=== PATIENT | male | born 1985 | race Caucasian/White ===

== ENCOUNTER 2019-07-05 04:20 | Emergency (ER) | payer BC, SELFPAY ==
--- NOTE | 2019-07-05 04:22 | CT_ITS ---
HISTORY: RIGHT FLANK PAIN, HX KS IN PAST TECHNIQUE: Helically acquired images were obtained of the abdomen and pelvis without oral or IV contrast. A radiation dose optimization technique was used for this scan. COMPARISON: None FINDINGS: # of images incl. paperwork: 485 LUNG BASES: clear. CT abdomen: Bones are unremarkable. The gallbladder remains. Liver, spleen, pancreas, and adrenal glands are normal. Right perirenal edema, right hydronephrosis and right nonobstructing nephrolith. Right hydroureter and right periureteric edema. Within the bladder aspect of the right ureterovesicular junction there is a 2 mm obstructing stone. The left kidney contains a nonobstructing stone. No left hydronephrosis or hydroureter. The aorta is normal. There is no intra-or extrahepatic biliary ductal dilatation. CT pelvis: No ascites is present. The prostate gland is not enlarged. The appendix is normal. Series 2 image 105. The bladder is normal. Bowel gas pattern is normal. CT/Abdomen/Pelvis without Cont IMPRESSION: 2 mm bladder aspect of right UVJ stone with right hydronephrosis and right hydroureter Individualized dose optimization techniques were used for this CT. at 0544 Reported and signed by: Miki Garcia MD Electronically Signed: Miki Garcia MD at 5:43 EDT Tel , Service support ,
--- NOTE | 2019-07-05 04:22 | ED.VISSUMM ---
- ER Visit Summary Date of Service: 07/05/19 Chief Complaint: Right flank pain History of Present Illness: The patient is a 34 M who had a sudden onset of right flank pain about 2 hours ago. He states he has pain in his right flank that radiated to his groin. At that point the pain was pretty severe but it is improved. He took nothing for this at home. He denies any hematuria. He states he had a kidney stone many years ago but it felt nothing like this. Denies any injuries. No fevers. Physical Examination: Vital signs reviewed. HEENT exam unremarkable. Heart is regular rate and rhythm without murmurs. Lungs are clear to auscultation. Abdomen is soft and nontender. Extremities reveal no edema. Skin exam normal. Neurologic exam normal. Test Results: CAT scan reveals a 2 mm kidney stone at the ureterovesicular junction. Urinalysis has 100 leukocytes, 150 blood, 10-25 white and red blood cells Emergency Department Course and Treatment: Patient was given saline and Toradol. He feels much better. Etiology of his symptoms are likely with his kidney stone. He does have white blood cells in his urine. However, he has no bacteria seen and has no UTI-like symptoms. I will await a urine culture before starting any antibiotics. I will send her home with [place] for pain control. He will follow-up with his PCP. Treatment Plan: [] Disposition: Discharge Impression: Right ureterolithiasis This note was generated with [employer] software. It may contain incorrect words, spelling, and punctuation that were not noted in review of the chart prior to signing ED Disposition - Plan for ED Patient: Referrals: NOT,DEFINED [NON-STAFF] -
[2019-07-05 04:23] VITALS: BP 148/70; PULSE 71; RESP 16; TEMP 35.9; O2SAT 98; BMI 31.6
[2019-07-05] MEDS: 0.9% Normal Saline 1,000 ML 250 ML IV (04:30)
[2019-07-05] MEDS: Ketorolac 30 MG/ML Syringe IV (04:30)
[2019-07-05 05:47] LABS: Bacteria 0 SEEN /hpf (None Seen); Squamous Epithelial Cells - UA 0 SEEN /hpf (0-5)
[2019-07-05 05:55] LABS: Color, Urine Yellow (Yellow); Glucose, Dipstick Normal (Normal); Ketone-Dipstick Negative (Negative); Leukocyte Esterase-Dipstick 100 /ul (Negative); Nitrite-Dipstick Negative (Negative); Occult Blood-Urine 150 /ul (Negative); Protein-Dipstick 30 mg/dl (Negative); Urine Bilirubin Dipstick Negative (Negative); Urine Clarity Sl. Cloudy (Clear); Urine Urobilinogen Normal (Normal)
[2019-07-05 06:03] LABS: Mucous, Urine 3+ /hpf (<or=2+); Red Blood Cells-Urine 10-25 SEEN /hpf (0-5); White Blood Cells 10-25 SEEN /hpf (0-5)
--- NOTE | 2019-07-05 06:13 | DCINST.ED_ITS ---
ED Disposition - Plan for ED Patient: Disposition: Home or Assisted Living Instructions: KIDNEY STONE w/ [place] Prescriptions: Hydrocodone Bitart/Apap 5-325 [[place] 5MG-325MG] 1 tab PO Q6H PRN PRN 3 Days #10 tab PRN Reason: Pain Prescription Printed Referrals: NOT,DEFINED [NON-STAFF] -
[2019-07-05 06:20] VITALS: BP 128/78; PULSE 82; RESP 16; O2SAT 97
== END 2019-07-05 06:21 | disposition home or self-care (01) ==
PROVIDERS: Emergency Provider Emergency Medicine
DX: R10.9 Unspecified abdominal pain (principal); N20.0 Calculus of kidney; Z87.442 Personal history of urinary calculi; K21.9 Gastro-esophageal reflux disease without esophagitis; Z79.899 Other long term (current) drug therapy
CPT/HCPCS: 74176; 81001; 87086; 96361; 96374; 99283; J7030; A4216